=== PATIENT | female | born 1990 | race Two or more races ===

== ENCOUNTER 2023-04-29 13:28 | Emergency (ER) | payer OTHER ==
[~2023-04-29] VITALS: Ht 154.9 cm; Wt 95.3 kg
[2023-04-29 16:55] LABS: HEMATOCRIT 38.4 % (36.0-45.00); HEMOGLOBIN 12.6 g/dL (12.0-15.00); MEAN CELL VOLUME 80.3 fL (80.00-100.00); MEAN CORPUSCULAR HEMOGLOBIN 26.4 pg (27.00-32.0); MEAN CORPUSCULAR HGB CONC 32.9 g/dl (32.0-36.0); PH,URINE 7.5 (5.0-8.0); PLATELET COUNT 310 K/uL (150-450); RED BLOOD COUNT 4.78 M/uL (4.00-6.00); RED CELL DISTRIBUTION WIDTH 15.9 % (11.5-14.5); URINE APPEARANCE Cloudy; URINE BILIRRUBIN Negative (NEGATIVE); URINE BLOOD Large; URINE COLOR Yellow; URINE GLUCOSE Negative (NEGATIVE); URINE LEUKOCYTE Trace; URINE NITRATE Positive; URINE PROTEIN Trace (NEGATIVE)
[2023-04-29 16:58] LABS: URINE EPITHELIAL CELLS 47.1 uL (0.0-38.8); URINE RBC 85.9 uL (0.0-20.8); URINE WBC 24.4 uL (0.0-23.2)
[2023-04-29 17:29] LABS: URINE BACTERIA > 9821.5 uL (0.0-1933)
[2023-04-29 17:57] LABS: ANION GAP 10 (10.0-20.0); BLOOD UREA NITROGEN 15 mg/dL (7-18); BUN CREA RATIO 18 (7.0-25.0); CALCIUM 8.8 mg/dL (8.5-10.1); CARBON DIOXIDE 30 mEq/L (21-32); CHLORIDE 106 mmol/L (98-107); CREATININE SERUM 0.84 mg/dL (0.55-1.02); GFR 79.61; GLUCOSE FASTING 87 mg/dL (65-100); HCG QUANTITATIVE < 1 mUI/mL (1-3); OSMOLALITY SERUM 283 MOSM/KG (275-295); POTASSIUM 4.19 mEq/L (3.5-5.1); SODIUM 142 mmol/L (136-145)
[2023-04-29] MEDS ORDERED: BACTRIM DS TAB1 EACH PO (19:26)
== END 2023-04-29 19:30 | disposition home or self-care (01) ==
LOC: ER 13:28
PROVIDERS: General Practice
DX: S30.0XXA Contusion of lower back and pelvis, initial encounter (principal); W18.39XA Other fall on same level, initial encounter; Y93.89 Activity, other specified; Y92.89 Other specified places as the place of occurrence of the external cause; Y99.8 Other external cause status; N39.0 Urinary tract infection, site not specified; N93.8 Other specified abnormal uterine and vaginal bleeding